=== PATIENT | male | born 1955 | race Caucasian/White ===

== ENCOUNTER 2019-01-02 19:27 | Emergency (ER) | payer BC ==
[~2019-01-02] VITALS: Ht 172.7 cm; Wt 94.3 kg
[2019-01-02 23:15] VITALS: BP 157/90
--- NOTE | 2019-01-02 23:58 | RAD ---
HAND LEFT 3V History: PALMAR LACERATION TO LEFT HAND Comparison: None. Findings: 3 views left hand are submitted. No acute fracture, radiopaque foreign body, or dislocation is identified. Impression: 1. No acute osseous abnormality or radiopaque foreign body is identified. Electronically signed by: Ric Christina MD (01/02/2019 11:55 PM) [facility]
[2019-01-03] MEDS ORDERED: LIDOCAINE 1% PF 2 ML VIAL. INJ ONE
[2019-01-03] MEDS ORDERED: CEPH500C PO (01:24)
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
[2019-01-03] MEDS ORDERED: NEOMY/BACITR/POLYMYXIN OINT PACKET. TP ONE (01:30)
== END 2019-01-03 01:42 | disposition home or self-care (01) ==
LOC: ER 19:27
DX: S61.412A Laceration without foreign body of left hand, initial encounter (principal); Y28.8XXA Contact with other sharp object, undetermined intent, initial encounter; Y93.89 Activity, other specified; Y92.89 Other specified places as the place of occurrence of the external cause; Y99.8 Other external cause status
CPT/HCPCS: 12002; 73130; 99283